=== PATIENT | female | born 1995 | race Caucasian/White ===

== ENCOUNTER → 2021-02-03 | Outpatient (REF) | LOC: M LABSMTC 10:27 | PROVIDERS: ATTEND Pediatrics | DX: Z11.52 Encounter for screening for COVID-19 (principal) ==

== ENCOUNTER → 2021-12-14 | Outpatient (REF) | LOC: M LABSMTC 10:38 | PROVIDERS: ATTEND Family Medicine | DX: Z20.822 Contact with and (suspected) exposure to COVID-19 (principal) ==

== ENCOUNTER → 2022-02-09 | Outpatient (REF) | LOC: M LABSMTC 10:24 | PROVIDERS: ATTEND Family Medicine | DX: Z11.52 Encounter for screening for COVID-19 (principal) ==

== ENCOUNTER → 2022-02-28 | Outpatient (REF) ==
[2022-02-28 13:26] LABS: RSV AMPLIFICATION NEGATIVE (NEGATIVE)
== END ==
LOC: M EMP 12:38
PROVIDERS: ATTEND Family Medicine
DX: Z11.52 Encounter for screening for COVID-19 (principal)

== ENCOUNTER → 2023-01-09 | Outpatient (REF) | LOC: M EMP 09:23 | PROVIDERS: ATTEND Family Medicine | DX: Z11.52 Encounter for screening for COVID-19 (principal) ==

== ENCOUNTER → 2025-04-16 | Outpatient (REF) | payer OTHER | LOC: M LAB REF 18:41 | PROVIDERS: ATTEND Physician Assistant | DX: B34.9 Viral infection, unspecified (principal) ==